=== PATIENT | female | born 1995 ===

== ENCOUNTER 2023-05-20 13:21 | Outpatient (CLI) | payer MEDICAID, OTHER | END 2023-05-20 23:59 | disposition short-term general hospital (02) | LOC: EMS 13:21 | DX: R56.9 Unspecified convulsions (principal); M54.2 Cervicalgia; R41.82 Altered mental status, unspecified; R45.6 Violent behavior; Z78.1 Physical restraint status | CPT/HCPCS: A0425; A0427 ==